=== PATIENT | male | born 1945 | race African-American/Black ===

== ENCOUNTER 2017-04-18 12:24 | Emergency (ER) | payer MEDICARE, MEDICAID ==
[~2017-04-18] VITALS: Ht 172.7 cm; Wt 85.0 kg
[~2017-04-18 12:24] MED LIST: CHLO200T5 PO; IBUP1TAB7 PO; LOSA50TA PO; OXYC1TAB63 PO; RISP1SOL PO
[2017-04-18 12:44] VITALS: BP 113/68; PULSE 120; RESP 18; TEMP 98.3; O2SAT 96
--- NOTE | 2017-04-18 13:18 | RADRPT ---
EXAM DATE/TIME: 04/18/2017 13:02 [place] COMPARISON: No previous studies available for comparison. INDICATIONS : Chest pains for 1 month. MEDICAL HISTORY : Hypertension. SURGICAL HISTORY : None. ENCOUNTER: Initial ACUITY: 1 month PAIN SCORE: 7/10 LOCATION: Bilateral chest FINDINGS: Frontal and lateral views of the chest demonstrate a normal-sized cardiac silhouette with calcificati on of the aorta. Descending thoracic aorta is very tortuous. There is airspace opacity in the right l ower lobe. No pleural effusion or pneumothorax is identified. Bones and soft tissues demonstrate no a cute finding. CONCLUSION: Airspace opacity, likely representing consolidation, in the right lower lobe. This could represent an infectious process in the appropriate clinical setting. Suggest followup chest x-ray to confirm reso lution. Alternately, could consider chest CT to further characterize. Estuardo Barbour MD on April 18, 2017 at 13:15 Board Certified Radiologist. This report was verified electronically.
[2017-04-18 13:41] LABS: AUTOMATED NEUTROPHIL # 6.7 TH/MM3 (1.8-7.7); BASOPHIL # 0.1 TH/MM3 (0-0.2); BASOPHIL % 0.7 % (0.0-2.0); EOSINOPHIL # 0.2 TH/MM3 (0-0.4); EOSINOPHIL % 1.8 % (0.0-4.0); HEMATOCRIT 40.4 % (39.0-51.0); LYMPH % 21.7 % (9.0-44.0); LYMPHOCYTE # 2.2 TH/MM3 (1.0-4.8); MEAN CELL VOLUME 89.4 FL (80.0-100.0); MEAN CORPUSCULAR HGB CONC 34.7 % (32.0-36.0); MEAN PLATELET VOLUME 10.1 FL (7.0-11.0); MONO % 9.8 % (0.0-8.0); PLATELET COUNT 194 TH/MM3 (150-450); RED BLOOD COUNT 4.52 MIL/MM3 (4.50-5.90); RED CELL DISTRIBUTION WIDTH 13.4 % (11.6-17.2); WHITE BLOOD COUNT 10.2 TH/MM3 (4.0-11.0)
--- NOTE | 2017-04-18 13:47 | PD ---
HPI Chief Complaint: Chest Pain Time Seen by Provider: 13:36 Travel History International Travel<30 days: No Contact w/Intl Traveler<30days: No Traveled to known affect area: No History of Present Illness HPI 71-year-old male presents for evaluation of left-sided chest wall pain. He reports a 1 week ago he was doing exercises with a barbell and he feels like he pulled a muscle in the left side is chest during exercise. Since that he has had sharp pain in left side of his chest that is worse with movement. He reports that he has also had a dry cough for the past 2 weeks. Denies any shortness of breath, exertional chest pain, fevers or chills, nausea or vomiting , diaphoresis, abdominal pain, flank pain. He denies any history of coronary artery disease. Denies any history of hypertension, diabetes, hyperlipidemia. He has no other complaints at this time. PFSH Past Medical History Cancer: No Cardiovascular Problems: No Diabetes: No Endocrine: No Genitourinary: No Hepatitis: Yes (hep c) Hiatal Hernia: No Immune Disorder: No Musculoskeletal: No Neurologic: No Psychiatric: Yes Reproductive: No Respiratory: No Thyroid Disease: No Past Surgical History Abdominal Surgery: No AICD: No Cardiac Surgery: No Ear Surgery: No Endocrine Surgery: No Eye Surgery: No Genitourinary Surgery: No Gynecologic Surgery: No Joint Replacement: No Oral Surgery: Yes (teeth removal) Pacemaker: No Thoracic Surgery: No Social History Alcohol Use: No Tobacco Use: No Substance Use: No Allergies-Medications (Allergen,Severity, Reaction): Coded Allergies: No Known Allergies (Verified Adverse Reaction, Unknown, 04/18/17) Reported Meds & Prescriptions Reported Meds & Active Scripts Active Doxycycline Hyclate 100 Mg Tab 100 Mg PO BID 10 Days Reported Chlorpromazine (Chlorpromazine HCl) 200 Mg Tab 500 Mg PO HS Chlorpromazine (Chlorpromazine HCl) 200 Mg Tab 200 Mg PO DAILY Risperidone Liq (Risperidone) 1 Mg/Ml Soln 1 Mg PO DAILY Oxycodone-Acetaminophen 5-325 mg Tab 1 Tab PO Q6H PRN Losartan (Losartan Potassium) 50 Mg Tab 50 Mg PO DAILY Ibuprofen 800 Mg Tab 800 Mg PO TID Review of Systems Except as stated in HPI: all other systems reviewed are Neg Physical Exam Narrative GENERAL: Well-developed well-nourished male in no acute distress SKIN: Warm and dry. HEAD: Atraumatic. Normocephalic. EYES: Pupils equal and round. No scleral icterus. No injection or drainage. ENT: No nasal bleeding or discharge. Mucous membranes pink and moist. NECK: Trachea midline. No JVD. CARDIOVASCULAR: Regular rate and rhythm. No murmur appreciated. RESPIRATORY: No accessory muscle use. Clear to auscultation. Breath sounds equal bilaterally. GASTROINTESTINAL: Abdomen soft, non-tender, nondistended. Hepatic and splenic margins not palpable. MUSCULOSKELETAL: No obvious deformities. Reproducible tenderness to palpation to left upper chest wall. There is no lower extremity edema. NEUROLOGICAL: Awake and alert. No obvious cranial nerve deficits. Motor grossly within normal limits. Normal speech. PSYCHIATRIC: Appropriate mood and affect; insight and judgment normal. Data Data Last Documented VS Vital Signs Date Time Temp Pulse Resp B/P (MAP) Pulse Ox O2 Delivery O2 Flow Rate FiO2 04/18/17 13:50 95 16 98 Room Air 04/18/17 12:44 98.3 113/68 (83) Orders Orders Electrocardiogram (04/18/17 12:46) Complete Blood Count With Diff (04/18/17 12:46) Basic Metabolic Panel (Bmp) (04/18/17 12:46) Ckmb (Isoenzyme) Profile (04/18/17 12:46) Troponin I (04/18/17 12:46) Chest, Pa & Lat (04/18/17 12:46) CKMB (04/18/17 13:20) CKMB% (04/18/17 13:20) Ed Discharge Order (04/18/17 15:02) Labs Laboratory Tests Test 04/18/17 13:20 White Blood Count 10.2 TH/MM3 Red Blood Count 4.52 MIL/MM3 Hemoglobin 14.0 GM/DL Hematocrit 40.4 % Mean Corpuscular Volume 89.4 FL Mean Corpuscular Hemoglobin 31.0 PG Mean Corpuscular Hemoglobin Concent 34.7 % Red Cell Distribution Width 13.4 % Platelet Count 194 TH/MM3 Mean Platelet Volume 10.1 FL Neutrophils (%) (Auto) 66.0 % Lymphocytes (%) (Auto) 21.7 % Monocytes (%) (Auto) 9.8 % Eosinophils (%) (Auto) 1.8 % Basophils (%) (Auto) 0.7 % Neutrophils # (Auto) 6.7 TH/MM3 Lymphocytes # (Auto) 2.2 TH/MM3 Monocytes # (Auto) 1.0 TH/MM3 Eosinophils # (Auto) 0.2 TH/MM3 Basophils # (Auto) 0.1 TH/MM3 CBC Comment DIFF FINAL Differential Comment Blood Urea Nitrogen 17 MG/DL Creatinine 1.61 MG/DL Random Glucose 132 MG/DL Calcium Level 9.8 MG/DL Sodium Level 137 MEQ/L Potassium Level 4.1 MEQ/L Chloride Level 105 MEQ/L Carbon Dioxide Level 25.7 MEQ/L Anion Gap 6 MEQ/L Estimat Glomerular Filtration Rate 52 ML/MIN Total Creatine Kinase 192 U/L Creatine Kinase MB 1.5 NG/ML Troponin I LESS THAN 0.02 NG/ML MDM Medical Decision Making Medical Screen Exam Complete: Yes Emergency Medical Condition: Yes Medical Record Reviewed: Yes Differential Diagnosis Intercostal muscle strain, pectoral strain, pectoral tear, acute coronary syndrome, angina, pericarditis, myocarditis, pulmonary embolism, pneumonia Narrative Course 71-year-old male presents for evaluation of chest wall pain started 1 week ago when he was doing exercises with weights. On examination his pain is reproduced with movement and palpation of the left upper chest wall. He has also had a cough for 2 weeks. His chest x-ray is suggestive of pneumonia in the right lung. His lab work is unremarkable. The patient will be started on doxycycline and recommended outpatient follow-up with his primary care physician to confirm resolution. He is stable for discharge. Diagnosis Primary Impression: Chest wall pain Additional Impression: Pneumonia Additional Instructions: Medications prescribed. Stay well hydrated and well-nourished. Follow-up with primary care physician in one to 2 weeks. Return for any acutely new or worsening symptoms. Med/Other Pt SpecificInfo: Prescription(s) given Scripts Doxycycline Hyclate (Doxycycline Hyclate) 100 Mg Tab 100 MG PO BID for 10 Days, #20 TAB Prov: Kishor Reed MD 04/18/17 Disposition: 01 DISCHARGE HOME Condition: Stable Khalif Mcdaniel Apr 18, 2017 13:47
[2017-04-18 14:06] LABS: BICARBONATE 25.7 MEQ/L (21.0-32.0); BLOOD UREA NITROGEN 17 MG/DL (7-18); CALCIUM 9.8 MG/DL (8.5-10.1); CHLORIDE 105 MEQ/L (98-107); CREATININE 1.61 MG/DL (0.60-1.30); GLOMERULAR FILTRATION RATE 52 ML/MIN (>89); GLUCOSE,RANDOM 132 MG/DL (74-106); SODIUM (NA) 137 MEQ/L (136-145)
[2017-04-18 14:10] LABS: TROPONIN I LESS THAN 0.02 NG/ML (0.02-0.05)
[2017-04-18] MEDS ORDERED: DOXY100T PO (14:55)
--- NOTE | 2017-04-19 10:52 | EKG ---
Date Performed: 04/18/2017 Time Performed: 13:50:40 PTAGE: 71 years EKG: Sinus rhythm NORMAL ECG NO PREVIOUS TRACING DOCTOR: Jeet Arenas Interpretating Date/Time 04/19/2017 10:50:38
== END 2017-04-18 15:16 | disposition home or self-care (01) ==
LOC: NEPE 12:24
DX: R07.89 Other chest pain (principal); J18.9 Pneumonia, unspecified organism; B19.20 Unspecified viral hepatitis C without hepatic coma
CPT/HCPCS: 71046; 80048; 82550; 82552; 84484; 85025; 93005

== ENCOUNTER 2017-04-29 07:23 | Emergency (ER) | payer MEDICARE, MEDICAID ==
[~2017-04-29] VITALS: Ht 175.3 cm; Wt 83.0 kg
[~2017-04-29 07:23] MED LIST changes: +DOXY100T PO
[2017-04-29 07:27] VITALS: BP 126/73; PULSE 118; RESP 18; TEMP 98.5; O2SAT 97
--- NOTE | 2017-04-29 07:35 | PD ---
HPI Chief Complaint: Back/ Neck Pain or Injury Time Seen by Provider: 07:34 Travel History International Travel<30 days: No Contact w/Intl Traveler<30days: No Traveled to known affect area: No History of Present Illness HPI 71-year-old -[place] male presents emergency department with vague complaints of chest and back pain which she has had for several weeks. Patient denies cough, fever, chills, urinary symptoms, nausea, vomiting, or diarrhea. He denies weakness in the lower extremities. He is obviously homeless. He has no other complaints. He describes his pain as achy and about a 6 out of 10. He has no known drug allergies. PFSH Past Medical History Cancer: No Cardiovascular Problems: No Diabetes: No Endocrine: No Genitourinary: No Hepatitis: Yes (hep c) Hiatal Hernia: No Immune Disorder: No Musculoskeletal: No Neurologic: No Psychiatric: Yes Reproductive: No Respiratory: No Thyroid Disease: No Past Surgical History Abdominal Surgery: No AICD: No Cardiac Surgery: No Ear Surgery: No Endocrine Surgery: No Eye Surgery: No Genitourinary Surgery: No Gynecologic Surgery: No Joint Replacement: No Oral Surgery: Yes (teeth removal) Pacemaker: No Thoracic Surgery: No Social History Alcohol Use: No Tobacco Use: Yes Substance Use: No Allergies-Medications (Allergen,Severity, Reaction): Coded Allergies: No Known Allergies (Verified Adverse Reaction, Unknown, 04/29/17) Reported Meds & Prescriptions Reported Meds & Active Scripts Active Doxycycline Hyclate 100 Mg Tab 100 Mg PO BID 10 Days Reported Chlorpromazine (Chlorpromazine HCl) 200 Mg Tab 500 Mg PO HS Chlorpromazine (Chlorpromazine HCl) 200 Mg Tab 200 Mg PO DAILY Risperidone Liq (Risperidone) 1 Mg/Ml Soln 1 Mg PO DAILY Oxycodone-Acetaminophen 5-325 mg Tab 1 Tab PO Q6H PRN Losartan (Losartan Potassium) 50 Mg Tab 50 Mg PO DAILY Ibuprofen 800 Mg Tab 800 Mg PO TID Review of Systems Except as stated in HPI: all other systems reviewed are Neg General / Constitutional: No: Fever Eyes: No: Visual changes HENT: No: Headaches Cardiovascular: Positive: Chest Pain or Discomfort (With cough. Nonspecific.) Respiratory: No: Cough, Shortness of Breath, Wheezing, Pleuritic Pain Gastrointestinal: No: Abdominal Pain Genitourinary: No: Dysuria Musculoskeletal: Positive: Arthralgias, Pain, No: Myalgias, Limited ROM, Edema Skin: No Rash Neurologic: No: Weakness Psychiatric: No: Depression Endocrine: No: Polydipsia Hematologic/Lymphatic: No: Easy Bruising Physical Exam Narrative GENERAL: Patient appears in no obvious distress. He is lying comfortably on the exam table. SKIN: Warm and dry. Normal color. Normal turgor. No rash. HEAD: Atraumatic. Normocephalic. EYES: Pupils equal and round. No scleral icterus. No injection or drainage. ENT: No nasal bleeding or discharge. Mucous membranes pink and moist. Pharynx is clear. Airways patent. NECK: Trachea midline. Supple and nontender. CARDIOVASCULAR: Regular rate and rhythm. No murmurs gallops or rubs. RESPIRATORY: No accessory muscle use. Clear to auscultation. Breath sounds equal bilaterally. No tenderness with palpation of the chest wall. GASTROINTESTINAL: Abdomen soft, non-tender, nondistended. Hepatic and splenic margins not palpable. MUSCULOSKELETAL: Extremities without clubbing, cyanosis, or edema. No obvious deformities. Negative straight leg raise pain bilaterally in the lower extremities. No increased pain with rotation of the hips. Patient is able to ambulate without difficulty. Patient complains of generalized low back pain with palpation. No bony tenderness or step-off. No sciatic notch tenderness. NEUROLOGICAL: Awake and alert. No obvious cranial nerve deficits. Motor grossly within normal limits. Five out of 5 muscle strength in the arms and legs. Normal speech. PSYCHIATRIC: Appropriate mood and affect; insight and judgment normal. Data Data Last Documented VS Vital Signs Date Time Temp Pulse Resp B/P (MAP) Pulse Ox O2 Delivery O2 Flow Rate FiO2 04/29/17 07:27 98.5 118 18 126/73 (90) 97 Orders Orders Ketorolac Inj (Toradol Inj) (04/29/17 08:00) [facility] Medical Decision Making Medical Screen Exam Complete: Yes Emergency Medical Condition: Yes Differential Diagnosis Arthritis. Lumbago. Malingering. Narrative Course Patient is medically stable at time of exam. Need for radiographic imaging or labs are not felt warranted based on my history and physical. Patient is given Toradol 60 mg IM. Patient is given a prescription for ibuprofen 600 mg 3 times daily #30. Patient to follow-up with [facility] as discussed. Diagnosis Primary Impression: Lumbago without sciatica Qualified Codes: M54.5 - Low back pain Referrals: [facility] Patient Instructions: Back Pain (ED), General Instructions Additional Instructions: Patient is medically stable at time of exam. Need for radiographic imaging or labs are not felt warranted based on my history and physical. Patient is given Toradol 60 mg IM. Patient is given a prescription for ibuprofen 600 mg 3 times daily #30. Patient to follow-up with [facility] as discussed. Med/Other Pt SpecificInfo: Prescription(s) given Disposition: 01 DISCHARGE HOME Condition: Stable Yanick Alvarez Apr 29, 2017 07:35
[2017-04-29] MEDS ORDERED: KETOROLAC TROMETHAMINE 60 MG/2 ML (IM) VIAL IM ONE (08:00)
[2017-04-29] MEDS ORDERED: IBUP-232 PO (08:15)
== END 2017-04-29 08:37 | disposition home or self-care (01) ==
LOC: NEPD 07:23
DX: M54.5 Low back pain (principal); Z72.0 Tobacco use
CPT/HCPCS: 96372; 99283; J1885